=== PATIENT | male | born 1965 | race Caucasian/White ===

== ENCOUNTER 2017-04-11 05:34 | Inpatient (IN) ==
--- NOTE | 2017-04-02 14:36 | EKG Report ---
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
[2017-04-02 14:38] LABS: Basophils # 0.1 10*3/uL (0.0-0.2); Basophils % 0.8 % (0.0-0.8); Eosinophils % 0.6 % (0.00-10.9); Immature Granulocytes % 0.5 %; Immature Granulocytes Absolute 0.03 #; Lymphocytes # 1.2 10*3/uL (1.4-4.0); Lymphocytes % 17.4 % (21.2-54.2); Mean Corpuscular HGB Conc 31.4 GM/DL (32-36); Mean Corpuscular Hemoglobin 25 PG (27-34); Mean Corpuscular Volume 80.8 FL (87-102); Mean Platelet Volume 9.3 FL (9.6-12.0); Monocytes # 0.8 10*3/uL (0.11-0.8); Monocytes % 11.7 % (1.7-12.7); Neutrophils # 4.6 10*3/uL (1.4-7.4); Platelet Count 389 T/CUMM (130-400); Red Blood Count 4.33 MC/CUMM (3.8-5.5); White Blood Count 6.7 T/CUMM (4-12)
[2017-04-02 15:10] LABS: Alanine Aminotransferase 15 U/L (16-61); Alkaline Phosphatase 130 U/L (45-117); Aspartate Amino Transferase 16 U/L (0-37); Bilirubin,Total < 0.39 MG/DL (0.2-1.0); Blood Urea Nitrogen 7 MG/DL (7-18); Calcium 8.6 MG/DL (8.5-10.1); Glucose 80 MG/DL (74-106); Osmolality,Calculated 279.1 MOS/KG (273-304); Potassium 3.7 MMOL/L (3.5-5.1); Sodium 142 MMOL/L (136-145); Total Protein 6.6 G/DL (6.4-8.3)
--- NOTE | 2017-04-02 15:21 | XRay Report ---
XR chest 2V Date: 04/02/2017 2:11 PM History: Respiratory preoperative evaluation Comparison: 11/21/2016 Technique: PA and lateral chest Findings: The heart is normal in size. Right subclavian venous access catheter with tip in SVC. The lungs are stable in appearance with small calcified granulomata/nodes. No acute osseous findings. Impression: No acute cardiopulmonary pathology identified. Right subclavian venous access catheter in satisfactory position PROCEDURE INTERPRETED AT [facility] DEPARTMENT OF RADIOLOGY Final Report Signed by: Dr. Nicki Mi
[2017-04-11] MEDS ORDERED: SODIUM CHLORIDE 0.9% 100 ML IV ONE (06:07)
[2017-04-11] MEDS ORDERED: cefOXitin 1,000 MG in SODIUM CHLORIDE 0.9% 100 ML IV ONE (06:30)
[2017-04-11] MEDS ORDERED: MEPERIDINE 25 MG/1 ML VIAL IV PRN (06:34)
[2017-04-11] MEDS ORDERED: ONDANSETRON 4 MG/2 ML VIAL IV PRN ×2 (06:34→10:42)
[2017-04-11] MEDS ORDERED: HYDROmorphone 2 MG/1 ML VIAL IV PRN (06:34)
[2017-04-11] MEDS ORDERED: BUPIVACAINE MPF 0.25% /EPI 30 ML VIAL ONE (06:50)
[2017-04-11] MEDS ORDERED: LACTATED RINGERS 1,000 ML IV SCH ×2 (07:00→11:00)
[2017-04-11] MEDS ORDERED: GLYCOPYRROLATE 0.4 MG/2 ML VIAL ONE (07:12)
[2017-04-11] MEDS ORDERED: ROCURONIUM 100 MG/10 ML VIAL IV ONE (07:12)
[2017-04-11] MEDS ORDERED: PHENYLEPHRINE 1 MG/10 ML SYRINGE IV ONE (07:12)
[2017-04-11] MEDS ORDERED: PROPOFOL 200 MG/20 ML VIAL IV ONE (07:12)
[2017-04-11] MEDS ORDERED: NEOSTIGMINE 10 MG/10 ML VIAL ONE (07:12)
[2017-04-11] MEDS ORDERED: LIDOCAINE 1% 5 ML VIAL ONE (07:12)
[2017-04-11 09:48] LABS: Apearance,Urine CLEAR (Clear); Bilirubin,Urine Negative (Negative); Blood, Urine Negative (Negative); Glucose,Urine (UA) Negative (Negative); Ketones,Urine Negative (Negative); Mucus,Urine Occasional /LPF (Occasional); Nitrite,Urine Negative (Negative); Protein,Urine Negative; RBC,Urine 2 /HPF (0-4); Urine Color Yellow (Yellow); Urine Specific Gravity 1.014 (1.001-1.035); Urine Urobilinogen < 2.0 EU/DL (0.2-1.0); WBC,Urine 2 /HPF (0-6)
[2017-04-11] MEDS: HYDROmorphone 2 MG/1 ML VIAL IV PRN ×2 (10:59→11:10)
[2017-04-11] MEDS ORDERED: MORPHINE PCA 30 MG/30 ML SYRINGE IV ONE (11:09)
[2017-04-11] MEDS: MORPHINE PCA 30 MG/30 ML SYRINGE IV SCH ×2 (11:15→22:10)
[2017-04-11] MEDS: DEXTROSE 5% LACTATED RINGERS 1,000 ML IV SCH ×2 (11:49→23:07)
--- NOTE | 2017-04-11 12:15 | History and Physical Update ---
History and Physical Update - History and Physical H&P was reviewed, the patient examined and there: are no changes in the patients condition since last H&P was completed.
[2017-04-11] MEDS ORDERED: HYDROmorphone 2 MG/1 ML VIAL ONE (12:22)
--- NOTE | 2017-04-11 12:22 | Operative Note ---
Date of procedure: 04/11/17 Pre-op diagnosis: Locally advanced splenic flexure colon cancer Post-op diagnosis: same Procedure: #1 segmental en bloc resection of large left upper quadrant colon cancer with stapled anastomosis 2. Segmental resection of proximal jejunum with stapled anastomosis 3. Local resection of portion of duodenum with repair of duodenotomy 3. Complete mobilization of splenic flexure 5. Full-thickness biopsy of inferior edge of pancreatic surface 6. Peritoneal biopsy Findings and technique: After informed consent was obtained the patient was brought the operating room and placed in supine position. After successful induction of general anesthesia the colostomy was prepped and closed with a pursestring suture of silk. Following this a small incision was made at the umbilicus after the abdomen was prepped and draped in usual sterile fashion. The peritoneal cavity was entered under direct vision and a Diana cannula inserted. Laparoscopy was carried out and no obvious metastatic disease was noted. There were some questionable areas on the peritoneal surface in the left upper quadrant and laparoscopic biopsy was carried out after a 5 mm port was placed in the left lower quadrant. Frozen section on this was benign. I saw no obvious evidence of unresectability at this point and converted to an open procedure through an upper midline incision. The colostomy was taken down and delivered into the peritoneal cavity to further facilitate exposure in the left upper quadrant. The peritoneal reflection of the descending colon and splenic flexure were incised. Also mobilized the spleen medially by incising the peritoneal reflection between the spleen and the diaphragm. The spleen and the tail of the pancreas were mobilized medially rotating the massive spleen tail of pancreas and tumor mass and colon medially so that they could be fully assessed. I entered the lesser sac and resected stomach free from the mass which did not appear to have any invasion of the tumor mass to stomach. Surprisingly as I entered the lesser sac I could visualize the anterior surface of the pancreas and this appeared to be free from the tumor. I did biopsy a portion of the pancreas where there was some adherence and this was free of tumor. Surprisingly I was able to separate from the spleen is well. There was no adherence of the tumor at all to the spleen or to the splenic vessels. The tumor mass was mobilized medially off of Gerota's fascia with there also appeared to be no invasion at this point as well. I then noted to portions of small intestine that were adherent to the mass 1 at the ligament of Treitz where I incised a portion of bowel wall and then closed this immediately transversely with interrupted silk Lembert sutures. I then divided the mesocolon with LigaSure dissector and maintaining good hemostasis and then divided the proximal jejunum segment about 20 cm in length where it was adherent into different places to the tumor mass. This en bloc resection was then sent to pathology where margins were checked and appeared to be negative. The bowel was then put back together with a stapled anastomosis at the jejunum and this was done with a MAXINE stapling device and a TA stapler to close the openings and the ends of the bowel. Mesenteric defect was closed interrupted silk suture. The descending colon was completely mobilized and I was easily able to do a colonic anastomosis under no tension with a GI stapling device and a TA stapler. Good hemostasis was maintained. The abdomen was irrigated suctioned dry and no bleeding noted. All of the suture lines were coated with Tisseel tissue sealant. Bowel was returned to its normal position. Sponge and instrument counts were correct at the time of closure. The fascial defect of the colostomy was closed with a running 0 PDS suture. The midline fascia was closed with running #1 PDS suture. A 10 mm MARCELLA drain was placed at the base of the pancreas and bed of dissection and brought up through the 5 mm port site in the left lower quadrant. Skin incisions were closed with skin clips. He appeared to tolerate the procedure well and did receive perioperative IV antibiotics as well as DVT prophylaxis. Anesthesia: GETA, local Surgeon / Physician: Mic Harris III. Estimated blood loss: other (200 mL) Specimens: other (Peritoneal biopsy and colon mass) Condition: stable Disposition: PACU Results - Labs CBC & BMP: 04/02/17 14:26 04/02/17 14:26 Discharge Plan - Discharge Medications No Action No Known Home Medications [No Known Home Medications] - Follow Up or Referral - Forms/Instructions
[2017-04-11] MEDS ORDERED: MIDAZOLAM 2 MG/2 ML VIAL ONE (12:23)
[2017-04-11] MEDS ORDERED: SODIUM CHLORIDE 0.9% 1,000 ML IV ONE (12:23)
[2017-04-11] MEDS ORDERED: ACETAMINOPHEN 1,000 MG/100 ML VIAL IV ONE (12:23)
[2017-04-11] MEDS ORDERED: LACTATED RINGERS 1,000 ML IV ONE (12:23)
[2017-04-11] MEDS ORDERED: SUFentanil 50 MCG/ML AMP ONE (12:23)
--- NOTE | 2017-04-11 12:25 | Anesthesia Post-Op ---
Anesthesia Post OP - Post Ansesthetic Evaluation Patient seen in post op: Yes Resp: within normal limits CV: within normal limits Mental: within normal limits Temp: within normal limits Ccqd-[id number]-[id number]: within normal limits Nausea and Vomiting: within normal limits Pain: within normal limits
[2017-04-11 14:41] LABS: Hematocrit 36.4 VOL% (42.0-52.0); Hemoglobin 11.4 GM/DL (14.0-18.0)
[2017-04-11 18:32] LABS: Hematocrit 35.4 VOL% (42.0-52.0); Hemoglobin 10.8 GM/DL (14.0-18.0)
[2017-04-12 05:18] LABS: Basophils # 0.1 10*3/uL (0.0-0.2); Basophils % 0.4 % (0.0-0.8); Eosinophils % 0.2 % (0.00-10.9); Hematocrit 34.7 VOL% (42.0-52.0); Hemoglobin 10.7 GM/DL (14.0-18.0); Immature Granulocytes % 0.5 %; Immature Granulocytes Absolute 0.07 #; Lymphocytes # 1.1 10*3/uL (1.4-4.0); Lymphocytes % 7.7 % (21.2-54.2); Mean Corpuscular HGB Conc 30.8 GM/DL (32-36); Mean Corpuscular Hemoglobin 26 PG (27-34); Mean Corpuscular Volume 84.2 FL (87-102); Mean Platelet Volume 9.9 FL (9.6-12.0); Monocytes # 1.6 10*3/uL (0.11-0.8); Monocytes % 11.3 % (1.7-12.7); Neutrophils % 79.9 % (38.7-73.9); Platelet Count 383 T/CUMM (130-400); Red Blood Count 4.12 MC/CUMM (3.8-5.5); Red Cell Distribution Width 18.6 % (9.3-17.3); White Blood Count 13.8 T/CUMM (4-12)
[2017-04-12 05:20] LABS: Hematocrit 35.3 VOL% (42.0-52.0)
[2017-04-12 05:49] LABS: Albumin 2.6 G/DL (3.4-5.0); Bilirubin,Total 1.1 MG/DL (0.2-1.0); Calcium 8.2 MG/DL (8.5-10.1); Osmolality,Calculated 276.4 MOS/KG (273-304); Potassium 3.8 MMOL/L (3.5-5.1); Total Protein 5.9 G/DL (6.4-8.3)
--- NOTE | 2017-04-12 07:43 | Event Note ---
He feels well. His pain is controlled. He has good urine output. He has only clear output from his nasogastric tube which I think is from the ice chips that he has been eating. His abdomen is benign and he is awake and alert. We will get him up out of bed and get his Shanks catheter and nasogastric tube out.
[2017-04-12] MEDS: DEXTROSE 5% LACTATED RINGERS 1,000 ML IV SCH ×2 (07:54→16:01)
[2017-04-12] MEDS: MORPHINE PCA 30 MG/30 ML SYRINGE IV SCH ×2 (08:17→16:57)
[2017-04-12] MEDS ORDERED: ONDANSETRON 4 MG/2 ML VIAL IV PRN (08:39)
[2017-04-12] MEDS: ENOXAPARIN 40 MG/0.4 ML SYRINGE SUBCUT SCH (20:38)
[2017-04-13] MEDS: DEXTROSE 5% LACTATED RINGERS 1,000 ML IV SCH ×3 (00:10→17:45)
[2017-04-13 03:19] LABS: Basophils # 0.1 10*3/uL (0.0-0.2); Basophils % 0.5 % (0.0-0.8); Eosinophils # 0.1 10*3/uL (0.0-0.87); Eosinophils % 0.9 % (0.00-10.9); Hemoglobin 9.6 GM/DL (14.0-18.0); Immature Granulocytes % 0.6 %; Immature Granulocytes Absolute 0.07 #; Lymphocytes # 1.1 10*3/uL (1.4-4.0); Lymphocytes % 9.7 % (21.2-54.2); Mean Corpuscular Hemoglobin 26 PG (27-34); Mean Corpuscular Volume 84.7 FL (87-102); Mean Platelet Volume 9.8 FL (9.6-12.0); Monocytes # 1.5 10*3/uL (0.11-0.8); Monocytes % 13.7 % (1.7-12.7); Neutrophils # 8.3 10*3/uL (1.4-7.4); Neutrophils % 74.6 % (38.7-73.9); Platelet Count 284 T/CUMM (130-400); Red Blood Count 3.66 MC/CUMM (3.8-5.5); Red Cell Distribution Width 18.2 % (9.3-17.3); White Blood Count 11.2 T/CUMM (4-12)
--- NOTE | 2017-04-13 10:25 | Event Note ---
He looks good. He has no complaints and is tolerating some clear liquids. He has been now walking in the hallway and his pain is controlled. His abdomen is benign and his vital signs are stable. We will try full liquids today.
[2017-04-13] MEDS: MORPHINE PCA 30 MG/30 ML SYRINGE IV SCH (13:45)
[2017-04-13] MEDS: ENOXAPARIN 40 MG/0.4 ML SYRINGE SUBCUT SCH (20:49)
[2017-04-14] MEDS: DEXTROSE 5% LACTATED RINGERS 1,000 ML IV SCH ×3 (01:08→20:41)
--- NOTE | 2017-04-14 08:07 | Event Note ---
He feels well. He denies nausea or vomiting or bloating. He is afebrile with stable vital signs. His abdomen is benign on exam. We will cut back his IV fluids some. I will check follow-up lab work in the morning. We will continue with full liquid diet at this point.
[2017-04-14] MEDS: ENOXAPARIN 40 MG/0.4 ML SYRINGE SUBCUT SCH (20:37)
[2017-04-15] MEDS: MORPHINE PCA 30 MG/30 ML SYRINGE IV SCH ×2 (03:15→16:08)
--- NOTE | 2017-04-15 04:36 | Event Note ---
He feels well. He has had some mild abdominal pain as he feels that he is developing some cramping. He has not had flatus or bowel movement but feels like he needs to. He has not had nausea or vomiting. He is afebrile with stable vital signs and his abdomen is benign on exam and his incisions look okay. We will await return of bowel function before discharging home and advancing his diet.
[2017-04-15 05:59] LABS: Basophils % 0.5 % (0.0-0.8); Eosinophils # 0.2 10*3/uL (0.0-0.87); Eosinophils % 3.4 % (0.00-10.9); Hematocrit 30.7 VOL% (42.0-52.0); Hemoglobin 9.7 GM/DL (14.0-18.0); Immature Granulocytes % 0.3 %; Immature Granulocytes Absolute 0.02 #; Lymphocytes # 0.7 10*3/uL (1.4-4.0); Lymphocytes % 11.9 % (21.2-54.2); Mean Corpuscular HGB Conc 31.6 GM/DL (32-36); Mean Corpuscular Hemoglobin 27 PG (27-34); Mean Corpuscular Volume 84.3 FL (87-102); Mean Platelet Volume 10.3 FL (9.6-12.0); Monocytes # 0.7 10*3/uL (0.11-0.8); Monocytes % 11.5 % (1.7-12.7); Neutrophils # 4.3 10*3/uL (1.4-7.4); Neutrophils % 72.4 % (38.7-73.9); Platelet Count 277 T/CUMM (130-400); Red Blood Count 3.64 MC/CUMM (3.8-5.5); Red Cell Distribution Width 17.4 % (9.3-17.3); White Blood Count 5.9 T/CUMM (4-12)
[2017-04-15 06:24] LABS: Calcium 8.3 MG/DL (8.5-10.1); Magnesium 1.8 MG/DL (1.8-2.4); Osmolality,Calculated 277.3 MOS/KG (273-304); Potassium 3.8 MMOL/L (3.5-5.1)
[2017-04-15] MEDS: DEXTROSE 5% LACTATED RINGERS 1,000 ML IV SCH ×2 (07:39→17:51)
[2017-04-15] MEDS: ENOXAPARIN 40 MG/0.4 ML SYRINGE SUBCUT SCH (21:13)
[2017-04-16] MEDS: DEXTROSE 5% LACTATED RINGERS 1,000 ML IV SCH (04:09)
[2017-04-16 05:57] VITALS: BP 129/72
[2017-04-16] MEDS ORDERED: HEPARIN LOCK FLUSH 500 UNIT/5 ML SYRINGE IV PRN (08:50)
[2017-04-16] MEDS ORDERED: HEPARIN LOCK FLUSH 500 UNIT/5 ML SYRINGE IV SCH (09:00)
--- NOTE | 2017-04-16 09:20 | Event Note ---
He feels well. He is tolerating p.o. diet and is having bowel movements. There is nothing but serosanguineous drainage in his MARCELLA drain and we will remove this. His pathology is pending. He is afebrile. I think we can discharge him home. His wounds look good. I will see him back in the clinic in about a week.
--- NOTE | 2017-04-16 10:58 | Discharge Summary ---
Hospital Course - Hospital Course Hospital Course: The patient is a 51-year-old male with locally advanced chronic flexure colon cancer who underwent resection as detailed below. 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 He was ultimately able to be weaned from the IV narcotics to orals and discharged home in good condition. Pathology still pending. Patient is tolerating oral intake, passing his bowels, tolerating activity, and voiding without difficulty. Incisions look good. He was discharged home in good condition. 1 week follow-up Dr. Harris. Diagnosis - Discharge Diagnosis (1) Colon cancer Status: Acute Specialty Discharge - Follow Up or Referrals Follow up with: Mic Harris III., MD [Physician] - 05/24/17 10:15 am Discharge Plan - Discharge Data Disposition: Disch To Home/Self Care Condition at Discharge: Stable Discharge Diet: advance to your usual diet Activity: no lifting (>5-10lb. ) Hygiene: may shower (Do not soak or submerge wounds. Pat dry.) Driving: not until seen by doctor Contact your physician if you experience:: fever over 101, Difficulty voiding, Redness or swelling, Nausea/Vomiting, Shortness of breath, Bleeding, pain uncontrolled by pain medications Wound / Dressing Care Instructions: Keep incisions clean and dry. - Discharge Medications New HYDROcodone/ACETAMIN 7.5-325 [[place] 7.5-325] 1 - 2 tablet PO Q4H PRN #40 tablet PRN Reason: Pain Moderate To Severe (4-10) No Action No Known Home Medications [No Known Home Medications] - Follow Up or Referral Follow Up: Mic Harris III., MD [Physician] - 05/24/17 10:15 am - Forms/Instructions Instructions: Staple Care (DC) Exam - Constitutional Vitals: Period Temp Pulse Resp BP Sys/Bledsoe Pulse Ox Last 24 Hr 97.1 F-98.8 F 72-88 18-20 127-140/68-84 93-99 General appearance: no acute distress - Respiratory Respiratory exam: Present: clear to auscultation bilaterally - Cardiovascular Cardiovascular exam: Present: regular rate and rhythm - GI/Abdominal GI/Abdominal exam: Present: normal bowel sounds, soft (Appropriate postop tenderness about incisions which is minimal.), other (Surgical incisions are clean and dry with kelley intact.). Absent: distended, firm, guarding, rebound - Extremities Exam Extremities exam: Absent: calf tenderness, edema - Neurological Exam Neurological exam: Present: alert, oriented X3 - Psychiatric Psychiatric exam: Present: normal affect, normal mood - Skin Skin exam: Present: normal color, warm Discharge Results Procedures and tests throughout hospitalization: 1. segmental en bloc resection of large left upper quadrant: Mass with a stapled anastomosis 2. Segmental resection of proximal jejunum with stable anastomosis 3. Local resection of portion of duodenum with repair of duodenotomy 4. Complete mobilization of splenic flexure 5. Full-thickness biopsy of inferior edge of pancreatic service 6. Peritoneal biopsy Pathology pending DS: Provider Date of admission: 04/11/17 10:27 Primary care physician: Sergio Faria MD Attending physician on admission: Mic Harris III., Consults: None Discharging clinician: Whitney Ruby PA-C
--- NOTE | 2017-04-16 12:17 | Pathology Report from [facility] ---
[facility] [place] [id number] PATIENT NAME : Cristhian Soria ORDERING DR : FRANCI STUBBS III, MD CLINICAL HX: Advanced colon cancer POST-OP DX: Same SPECIMEN INFO: #1 Peritoneal biopsy #2 Pancreas surface #3 Colon cancer with attached small bowel, check margins GROSS DESCRIPTION: #1 Received fresh for frozen section labeled CRISTHIAN SORIA consists of a 0.4 x 0.2 cm aggregate of hunt tissue submitted in cassette #1 for frozen section.#2 Received fresh for frozen section labeled CRISTHIAN SORIA consists of fragment of yellow red tissue measuring 1.0 x 0.6 cm, submitted in cassette FS2 for frozen section.#3 Received fresh labeled with the patients name CRISTHIAN SORIA and consists of a segment of colon measuring 18.0 cm in length and up to 4.0 cm in diameter. Opening the specimen reveals a circumferential tumor mass measuring 10.0 x 6.5 cm which extends to within 6.5 cm of the nearest margin and within 3.5 cm of the opposite margin. Grossly the tumor extends through the bowel wall into the adjacent mesentery coming to within 1.0 cm of the mesenteric margin. The tumor also invades into an adjacent attached segment of small bowel which measures 9.0 x 3.5 cm. Lymph nodes will be submitted following fixation. Sections submitted: 3A colon proximal margin , 3B distal margin, 3C and 3D tumor and mesenteric margin, 3E and 3F tumor, 3G tumor and adjacent small bowel, 3H and 3I small bowel margin. Cassettes added on Saturday04/12/2017. Cassettes 3J and 3K lymph nodes. DIAGNOSIS FOR CRISTHIAN SORIA: see page #2Page #2MICROSCOPIC DIAGNOSIS:#1 PERITONEAL BIOPSY: Benign, no evidence of tumor.#2 PANCREAS SURFACE: Benign liver, no evidence of malignancy.#3 COLON, PARTIAL COLECTOMY (Intact, 18 x 4 cm ): TYPE: Invasive adenocarcinoma TUMOR SITE: Colon, NOS TUMOR SIZE: 10 x 6.5 cm. MACROSCOPIC TUMOR PERFORATION: Present HISTOLOGIC GRADE: Poorly differentiated. MICROSCOPIC TUMOR EXTENSION: Tumor penetrates serosa and invades adjacent small bowel. MARGINS, PROXIMAL: Uninvolved by carcinoma, distance = 6.5 cm DISTAL: Uninvolved by carcinoma, distance = 3.5 cm MESENTERIC: Uninvolved by carcinoma, distance = 1.0 cm LYMPH VASCULAR INVASION: Present. PERINEURAL INVASION: Present. TUMOR DEPOSITS: Not identified. LYMPH NODES: NUMBER EXAMINED: 19. NUMBER INVOLVED: 1. ADDITIONAL FINDINGS: NoneAJCC PATHOLOGIC STAGE IIIC ([id number] ). COLLECTED DATE: 04/11/2017 [facility] REPORT DATE: 04/16/2017 ELECTRONICALLY SIGNED BY: Felipe Seals III, M.D. 04/16/2017 - 7:31:12 MTDD
--- NOTE | 2017-04-19 11:00 | Physician Query Form ---
CLICK EDIT DOCUMENT TO SELECT QUERY ANSWER --> OK --> SIGN Cassi Rocha RN, CCDS Certified Clinical Foreign Language Teacher W) [phone] (f) [phone] [email or web address] PROVIDERS: Make your selection(s) from the choices in EACH section by typing an "x" and enter comments in the comment section. Please use your independent medical judgment in providing your response. This request does not imply that any particular answer is desired or expected. CLINICAL INDICATORS: (Providers should not edit this section) Pathology Findings: The pathology report is showing "AJCC PATHOLOGIC STAGE IIIC ([id number])----Lymph nodes ---Number examined 19-----Number involved 1. Abnormal Pathology findings are not reported unless an authorized provider indicates their clinical significance Please select the best choice: ( x) I agree with the Pathology findings ( ) I disagree with the Pathology findings ( ) No clinical significance ( ) Other/clarification of findings, please specify: ( ) Clinically unable to determine COMMENTS: PLEASE ALSO DOCUMENT RESPONSE IN PROGRESS NOTES AND/OR DISCHARGE SUMMARY Use of terms such as suspected, likely, or probable (associated with a specific diagnosis that is being evaluated, monitored, or treated as if it exists) are acceptable and can be restated in the discharge summary if not ruled out. MTDD
--- NOTE | 2017-04-22 07:28 | Physician Query Form ---
CLICK EDIT DOCUMENT TO SELECT QUERY ANSWER --> OK --> SIGN Cassi Rocha RN, CCDS Certified Clinical Set Up Mechanic [employer] W) [phone] (f) [phone] [email or web address] PROVIDERS: Make your selection(s) from the choices in EACH section by typing an "x" and enter comments in the comment section. Please use your independent medical judgment in providing your response. This request does not imply that any particular answer is desired or expected. CLINICAL INDICATORS: (Providers should not edit this section) Pathology Findings: The pathology report is showing "AJCC PATHOLOGIC STAGE IIIC ([id number])----Lymph nodes ---Number examined 19-----Number involved 1. Abnormal Pathology findings are not reported unless an authorized provider indicates their clinical significance Please select the best choice: ( ) I agree with the Pathology findings ( ) I disagree with the Pathology findings ( ) No clinical significance ( ) Other/clarification of findings, please specify: ( ) Clinically unable to determine COMMENTS: PLEASE ALSO DOCUMENT RESPONSE IN PROGRESS NOTES AND/OR DISCHARGE SUMMARY Use of terms such as suspected, likely, or probable (associated with a specific diagnosis that is being evaluated, monitored, or treated as if it exists) are acceptable and can be restated in the discharge summary if not ruled out. MTDD
== END 2017-04-16 12:00 | disposition home or self-care (01) | DRG 327 ==
LOC: N.OR 05:34 → N.SDSINP 05:35 → N.2E 10:27
PROVIDERS: ADMIT Surgery; ATTEND Surgery

== ENCOUNTER 2020-12-29 02:38 | Observation (INO) ==
[2020-12-29] MEDS ORDERED: SODIUM CHLORIDE 0.9% 1,000 ML IV STA (02:57)
[2020-12-29] MEDS ORDERED: PANTOPRAZOLE 40 MG VIAL IV STA (02:57)
[2020-12-29] MEDS ORDERED: ONDANSETRON 4 MG/2 ML VIAL IV STA (02:57)
[2020-12-29] MEDS ORDERED: HYDROmorphone 2 MG/1 ML VIAL IV STA (02:57)
[2020-12-29 03:21] LABS: Basophils # 0.1 10*3/uL (0.0-0.2); Basophils % 0.5 % (0.0-0.8); Eosinophils % 0.2 % (0.00-10.9); Hematocrit 44.6 VOL% (42.0-52.0); Immature Granulocytes % 1.1 %; Immature Granulocytes Absolute 0.18 #; Lymphocytes # 0.7 10*3/uL (1.4-4.0); Lymphocytes % 4.3 % (21.2-54.2); Mean Corpuscular HGB Conc 31.4 GM/DL (32-36); Mean Corpuscular Volume 89.9 FL (87-102); Mean Platelet Volume 9.1 FL (9.6-12.0); Neutrophils % 84.9 % (38.7-73.9); Platelet Count 312 T/CUMM (130-400); Red Blood Count 4.96 MC/CUMM (3.8-5.5)
[2020-12-29 03:48] LABS: Alanine Aminotransferase 53 U/L (16-61); Albumin 2.4 G/DL (3.4-5.0); Alkaline Phosphatase 895 U/L (45-117); Amylase 21 U/L (25-115); Aspartate Amino Transferase 127 U/L (0-37); Blood Urea Nitrogen 10 MG/DL (7-18); Calcium 9.1 MG/DL (8.5-10.1); Carbon Dioxide 27 MMOL/L (21-32); Estimated Glom Filtration Rate 106 ML/MIN; Glucose 128 MG/DL (74-106); Osmolality,Calculated 260.8 MOS/KG (273-304); Potassium 3.7 MMOL/L (3.5-5.1); Sodium 130 MMOL/L (136-145); Total Protein 8.3 G/DL (6.4-8.3)
[2020-12-29 03:52] LABS: Lactic Acid 3.8 MMOL/L (0.4-2.0)
[2020-12-29] MEDS ORDERED: PIPERACILLIN/TAZOBACTAM 3,375 MG in SODIUM CHLORIDE 0.9% 100 ML IV STA (03:56)
[2020-12-29 04:32] LABS: Eosinophils 1 % (0-10); Lymphocytes 3 % (20-55); Platelet Estimate Normal; Segmented Neutrophils 90 % (50-85); Total Cells Counted 100
[2020-12-29 05:00] LABS: Bilirubin,Urine Negative (Negative); Blood, Urine Negative (Negative); Glucose,Urine (UA) Negative (Negative); Ketones,Urine Negative (Negative); Mucus,Urine Many /LPF (Occasional); Nitrite,Urine Negative (Negative); Protein,Urine 30 MG/DL; RBC,Urine 2 /HPF (0-4); Urine Appearance CLEAR (Clear); Urine Color Amber (Yellow); Urine Specific Gravity 1.021 (1.001-1.035); WBC,Urine 1 /HPF (0-6)
[2020-12-29] MEDS ORDERED: LACTULOSE 20 GM/30 ML UDCUP PO PRN ×2 (05:41→05:57)
[2020-12-29] MEDS ORDERED: MORPHINE 4 MG/1 ML VIAL IV PRN (05:57)
[2020-12-29] MEDS ORDERED: GLUCAGON 1 MG VIAL IM PRN (05:57)
[2020-12-29] MEDS ORDERED: ONDANSETRON 4 MG/2 ML VIAL IV PRN (05:57)
[2020-12-29] MEDS ORDERED: DEXTROSE 50% 25 GM/50 ML VIAL IV PRN (05:57)
[2020-12-29] MEDS: SODIUM CHLORIDE 0.9% 1,000 ML IV SCH ×2 (06:28→19:26)
[2020-12-29] MEDS: ASCORBIC ACID 500 MG TABLET PO SCH (08:38)
[2020-12-29] MEDS: CHOLECALCIFEROL 400 UNIT TABLET PO SCH (08:38)
[2020-12-29] MEDS: MULTIVITAMIN (CENTRUM) TABLET PO SCH (08:38)
[2020-12-29] MEDS ORDERED: RIVAROXABAN 15 MG TABLET PO SCH (09:00)
[2020-12-29] MEDS: INSULIN LISPRO 100 UNIT/ML SUBCUT SCH ×4 (11:46→21:37)
[2020-12-29] MEDS: PIPERACILLIN/TAZOBACTAM 3,375 MG in SODIUM CHLORIDE 0.9% 100 ML IV SCH ×2 (12:25→19:26)
[2020-12-29] MEDS: REGORAFENIB 40 MG PO SCH ×2 (19:56→19:59)
[2020-12-30] MEDS: PIPERACILLIN/TAZOBACTAM 3,375 MG in SODIUM CHLORIDE 0.9% 100 ML IV SCH ×3 (03:02→19:38)
[2020-12-30 05:24] LABS: Basophils # 0.1 10*3/uL (0.0-0.2); Basophils % 0.5 % (0.0-0.8); Eosinophils # 0.1 10*3/uL (0.0-0.87); Hematocrit 38.1 VOL% (42.0-52.0); Immature Granulocytes % 0.7 %; Immature Granulocytes Absolute 0.08 #; Lymphocytes # 0.7 10*3/uL (1.4-4.0); Lymphocytes % 6.3 % (21.2-54.2); Mean Corpuscular HGB Conc 31.5 GM/DL (32-36); Mean Corpuscular Volume 89.6 FL (87-102); Mean Platelet Volume 9.5 FL (9.6-12.0); Neutrophils % 79.5 % (38.7-73.9); Platelet Count 251 T/CUMM (130-400); Red Blood Count 4.25 MC/CUMM (3.8-5.5); Red Cell Distribution Width 17.5 % (9.3-17.3); White Blood Count 11.2 T/CUMM (4-12)
[2020-12-30 05:48] LABS: INR 1.4; PT Patient Result 15.2 SECS (9.8-11.9); Partial Thromboplastin Time 37.7 SECS (23.9-33.8)
[2020-12-30 05:59] LABS: Albumin 1.8 G/DL (3.4-5.0); Bilirubin,Total 1.5 MG/DL (0.2-1.0); Osmolality,Calculated 258.7 MOS/KG (273-304); Potassium 3.9 MMOL/L (3.5-5.1); Total Protein 6.6 G/DL (6.4-8.3)
[2020-12-30] MEDS: INSULIN LISPRO 100 UNIT/ML SUBCUT SCH ×4 (08:09→20:14)
[2020-12-30] MEDS: ASCORBIC ACID 500 MG TABLET PO SCH (08:42)
[2020-12-30] MEDS: CHOLECALCIFEROL 400 UNIT TABLET PO SCH (08:42)
[2020-12-30] MEDS: MULTIVITAMIN (CENTRUM) TABLET PO SCH (08:42)
[2020-12-30] MEDS: REGORAFENIB 40 MG PO SCH ×2 (16:13→20:14)
[2020-12-31] MEDS: PIPERACILLIN/TAZOBACTAM 3,375 MG in SODIUM CHLORIDE 0.9% 100 ML IV SCH ×2 (03:02→13:08)
[2020-12-31 05:48] LABS: Basophils # 0.1 10*3/uL (0.0-0.2); Basophils % 0.6 % (0.0-0.8); Eosinophils # 0.1 10*3/uL (0.0-0.87); Eosinophils % 0.8 % (0.00-10.9); Hematocrit 39.9 VOL% (42.0-52.0); Hemoglobin 12.3 GM/DL (14.0-18.0); Immature Granulocytes % 0.8 %; Immature Granulocytes Absolute 0.15 #; Lymphocytes # 1.1 10*3/uL (1.4-4.0); Lymphocytes % 5.9 % (21.2-54.2); Mean Corpuscular HGB Conc 30.8 GM/DL (32-36); Mean Corpuscular Volume 91.3 FL (87-102); Mean Platelet Volume 9.4 FL (9.6-12.0); Monocytes % 10.9 % (1.7-12.7); Platelet Count 339 T/CUMM (130-400); Red Blood Count 4.37 MC/CUMM (3.8-5.5); Red Cell Distribution Width 17.5 % (9.3-17.3); White Blood Count 17.7 T/CUMM (4-12)
[2020-12-31 06:12] LABS: Blood Urea Nitrogen 7 MG/DL (7-18); Calcium 8.3 MG/DL (8.5-10.1); Carbon Dioxide 27 MMOL/L (21-32); Estimated Glom Filtration Rate 113 ML/MIN; Glucose 90 MG/DL (74-106); Osmolality,Calculated 265.2 MOS/KG (273-304); Potassium 3.9 MMOL/L (3.5-5.1); Sodium 134 MMOL/L (136-145)
[2020-12-31] MEDS: INSULIN LISPRO 100 UNIT/ML SUBCUT SCH ×2 (08:16→11:28)
[2020-12-31] MEDS: CHOLECALCIFEROL 400 UNIT TABLET PO SCH (08:55)
[2020-12-31] MEDS: ASCORBIC ACID 500 MG TABLET PO SCH (08:55)
[2020-12-31] MEDS: MULTIVITAMIN (CENTRUM) TABLET PO SCH (08:55)
[2020-12-31] MEDS: SODIUM CHLORIDE 0.9% 1,000 ML IV SCH (08:56)
[2020-12-31] MEDS: REGORAFENIB 40 MG PO SCH (08:56)
[2020-12-31 11:40] VITALS: BP 129/73
[2020-12-31] MEDS ORDERED: HEPARIN LOCK FLUSH 500 UNIT/5 ML SYRINGE IV ONE (11:55)
== END 2020-12-31 12:56 | disposition home or self-care (01) ==
LOC: N.ED 02:38 → N.EDINP 02:38 → N.2E 06:48 → N.4E 07:28
PROVIDERS: ADMIT Internal Medicine; ATTEND Internal Medicine

== ENCOUNTER 2021-01-14 08:50 | Inpatient (IN) ==
[2021-01-14 09:33] LABS: Troponin I < 0.015 NG/ML (0.00-0.045)
[2021-01-14 10:01] LABS: Basophils # 0.1 10*3/uL (0.0-0.2); Basophils % 0.4 % (0.0-0.8); Eosinophils % 0.2 % (0.00-10.9); Hematocrit 35.4 VOL% (42.0-52.0); Immature Granulocytes % 0.6 %; Immature Granulocytes Absolute 0.07 #; Lymphocytes # 0.4 10*3/uL (1.4-4.0); Lymphocytes % 3.4 % (21.2-54.2); Mean Corpuscular HGB Conc 31.1 GM/DL (32-36); Mean Corpuscular Volume 90.5 FL (87-102); Mean Platelet Volume 10.3 FL (9.6-12.0); Monocytes % 0.9 % (1.7-12.7); Neutrophils % 94.5 % (38.7-73.9); Platelet Count 225 T/CUMM (130-400); Red Blood Count 3.91 MC/CUMM (3.8-5.5); Red Cell Distribution Width 18.2 % (9.3-17.3)
[2021-01-14] MEDS ORDERED: ONDANSETRON 4 MG/2 ML VIAL IV ONE (10:07)
[2021-01-14] MEDS ORDERED: HYDROmorphone 2 MG/1 ML VIAL IV STA (10:07)
[2021-01-14 10:23] LABS: INR 1.3
[2021-01-14 10:24] LABS: Albumin 2.1 G/DL (3.4-5.0); Bilirubin,Total 4.2 MG/DL (0.2-1.0); Calcium 8.6 MG/DL (8.5-10.1); Osmolality,Calculated 271.1 MOS/KG (273-304); Potassium 4.5 MMOL/L (3.5-5.1); Total Protein 7.2 G/DL (6.4-8.3)
[2021-01-14 10:26] LABS: Anisocytosis 1+; Band Neutrophils 2 % (0-10); Lymphocytes 6 % (20-55); Macrocytosis 1+; Platelet Estimate Normal; Segmented Neutrophils 92 % (50-85); Total Cells Counted 100
[2021-01-14] MEDS ORDERED: ONDANSETRON 4 MG/2 ML VIAL IV PRN ×2 (13:42→15:33)
[2021-01-14] MEDS ORDERED: GLUCAGON 1 MG VIAL IM PRN (13:42)
[2021-01-14] MEDS ORDERED: MORPHINE 4 MG/1 ML VIAL IV PRN (13:42)
[2021-01-14] MEDS ORDERED: DEXTROSE 50% 25 GM/50 ML VIAL IV PRN (13:42)
[2021-01-14] MEDS: FUROSEMIDE 40 MG/4 ML VIAL IV SCH (14:21)
[2021-01-14] MEDS ORDERED: diphenhydrAMINE CAP 25 MG CAPSULE PO PRN (15:33)
[2021-01-14] MEDS ORDERED: BENZTROPINE 2 MG/2 ML AMP IV PRN (15:33)
[2021-01-14] MEDS ORDERED: traMADol 50 MG TABLET PO PRN (15:33)
[2021-01-14] MEDS ORDERED: chlorproMAZINE INJ 25 MG in SODIUM CHLORIDE 0.9% 100 ML IV PRN (15:33)
[2021-01-14] MEDS ORDERED: MAGNESIUM HYDROXIDE SUSP 30 ML UDCUP PO PRN (15:33)
[2021-01-14] MEDS ORDERED: chlorproMAZINE 25 MG TABLET PO PRN (15:33)
[2021-01-14] MEDS ORDERED: PROMETHAZINE INJ 25 MG in SODIUM CHLORIDE 0.9% 50 ML IV PRN (15:33)
[2021-01-14] MEDS ORDERED: guaiFENesin 200 MG/10 ML UDCUP PO PRN (15:33)
[2021-01-14] MEDS ORDERED: ACETAMINOPHEN 325 MG TABLET PO PRN (15:33)
[2021-01-14] MEDS ORDERED: TEMAZEPAM 7.5 MG CAPSULE PO PRN (15:33)
[2021-01-14] MEDS ORDERED: ALUMINUM/MAGNES/SIMETH MAX STR 30 ML UDCUP PO PRN (15:33)
[2021-01-14] MEDS ORDERED: chlorproMAZINE INJ 50 MG in SODIUM CHLORIDE 0.9% 100 ML IV PRN (15:33)
[2021-01-14] MEDS ORDERED: MYLANTA/LIDO VISC 2:1 300 ML BOTTLE SWISH/SPIT PRN (15:33)
[2021-01-14] MEDS ORDERED: LACTULOSE 20 GM/30 ML UDCUP PO PRN (15:33)
[2021-01-14] MEDS ORDERED: ALPRAZolam 0.25 MG TABLET PO PRN (15:33)
[2021-01-14] MEDS ORDERED: LOPERAMIDE 2 MG CAPSULE PO PRN ×2 (15:33)
[2021-01-14] MEDS ORDERED: MYLANTA/LIDO VISC 2:1 300 ML BOTTLE SWISH/SWAL PRN (15:33)
[2021-01-14] MEDS: ALBUTEROL/IPRATROPIUM 3 ML NEB RESP TX SCH (19:22)
[2021-01-14] MEDS: ENOXAPARIN 40 MG/0.4 ML SYRINGE SUBCUT SCH (20:13)
[2021-01-14] MEDS: DOCUSATE SODIUM 100 MG CAPSULE PO SCH (20:13)
[2021-01-14] MEDS: HYDROmorphone 2 MG/1 ML VIAL IV PRN (22:14)
[2021-01-15] MEDS: ALBUTEROL/IPRATROPIUM 3 ML NEB RESP TX SCH ×4 (00:43→19:34)
[2021-01-15 06:07] LABS: Basophils % 0.3 % (0.0-0.8); Eosinophils % 0.2 % (0.00-10.9); Hematocrit 32.3 VOL% (42.0-52.0); Hemoglobin 10.1 GM/DL (14.0-18.0); Immature Granulocytes % 0.6 %; Immature Granulocytes Absolute 0.05 #; Lymphocytes # 0.5 10*3/uL (1.4-4.0); Lymphocytes % 5.7 % (21.2-54.2); Mean Corpuscular HGB Conc 31.3 GM/DL (32-36); Mean Corpuscular Volume 90.5 FL (87-102); Monocytes % 1.3 % (1.7-12.7); Neutrophils % 91.9 % (38.7-73.9); Red Blood Count 3.57 MC/CUMM (3.8-5.5); Red Cell Distribution Width 18.1 % (9.3-17.3); White Blood Count 8.7 T/CUMM (4-12)
[2021-01-15 06:09] LABS: Platelet Count 140 T/CUMM (130-400)
[2021-01-15 06:24] LABS: Calcium 8.2 MG/DL (8.5-10.1); Osmolality,Calculated 264.5 MOS/KG (273-304)
[2021-01-15 08:10] LABS: Band Neutrophils 1 % (0-10); Lymphocytes 5 % (20-55); Segmented Neutrophils 94 % (50-85); Total Cells Counted 100
[2021-01-15 08:11] LABS: Hypochromasia 2+; Platelet Estimate Adequate
[2021-01-15] MEDS: DOCUSATE SODIUM 100 MG CAPSULE PO SCH ×3 (08:20→20:18)
[2021-01-15] MEDS: HYDROmorphone 2 MG/1 ML VIAL IV PRN ×4 (08:21→23:35)
[2021-01-15] MEDS: FUROSEMIDE 40 MG/4 ML VIAL IV SCH (08:22)
[2021-01-15] MEDS: CYCLOBENZAPRINE 10 MG TABLET PO PRN ×2 (09:57→20:14)
[2021-01-15] MEDS ORDERED: fentaNYL 12 MCG/HR PATCH TRANSDERM SCH (11:26)
[2021-01-15] MEDS: ENOXAPARIN 40 MG/0.4 ML SYRINGE SUBCUT SCH (20:17)
[2021-01-16] MEDS: ALBUTEROL/IPRATROPIUM 3 ML NEB RESP TX SCH ×4 (00:20→20:41)
[2021-01-16 06:15] LABS: Basophils % 0.6 % (0.0-0.8); Eosinophils # 0.1 10*3/uL (0.0-0.87); Hematocrit 30.4 VOL% (42.0-52.0); Hemoglobin 9.9 GM/DL (14.0-18.0); Immature Granulocytes % 1.4 %; Lymphocytes # 0.4 10*3/uL (1.4-4.0); Lymphocytes % 5.7 % (21.2-54.2); Mean Corpuscular HGB Conc 32.6 GM/DL (32-36); Mean Corpuscular Volume 88.6 FL (87-102); Mean Platelet Volume 10.3 FL (9.6-12.0); Monocytes % 1.5 % (1.7-12.7); Neutrophils % 89.8 % (38.7-73.9); Platelet Count 114 T/CUMM (130-400); Red Blood Count 3.43 MC/CUMM (3.8-5.5); White Blood Count 7.2 T/CUMM (4-12)
[2021-01-16] MEDS: CYCLOBENZAPRINE 10 MG TABLET PO PRN (06:21)
[2021-01-16 06:33] LABS: Hypochromasia 1+; Microcytosis 1+; Ovalocytes Slight; Platelet Estimate Decreased
[2021-01-16 06:48] LABS: Calcium 8.3 MG/DL (8.5-10.1); Osmolality,Calculated 263.5 MOS/KG (273-304); Potassium 4.4 MMOL/L (3.5-5.1)
[2021-01-16 06:53] LABS: Albumin 1.9 G/DL (3.4-5.0); Bilirubin,Total 4.7 MG/DL (0.2-1.0); Calcium 8.3 MG/DL (8.5-10.1); Osmolality,Calculated 265.4 MOS/KG (273-304); Potassium 4.3 MMOL/L (3.5-5.1); Total Protein 6.7 G/DL (6.4-8.3)
[2021-01-16] MEDS ORDERED: chlorproMAZINE 25 MG TABLET PO ONE (08:28)
[2021-01-16] MEDS: HYDROmorphone 2 MG/1 ML VIAL IV PRN (10:32)
[2021-01-16] MEDS: FLUCONAZOLE 200 MG TABLET PO SCH (16:38)
[2021-01-16] MEDS: FUROSEMIDE 40 MG/4 ML VIAL IV SCH (16:39)
[2021-01-16] MEDS: DOCUSATE SODIUM 100 MG CAPSULE PO SCH ×2 (16:52→23:08)
[2021-01-16] MEDS: ENOXAPARIN 40 MG/0.4 ML SYRINGE SUBCUT SCH (23:08)
[2021-01-17] MEDS: ALBUTEROL/IPRATROPIUM 3 ML NEB RESP TX SCH ×2 (01:40→07:30)
[2021-01-17] MEDS ORDERED: HEPARIN LOCK FLUSH 500 UNIT/5 ML SYRINGE IV ONE (08:40)
[2021-01-17] MEDS: DOCUSATE SODIUM 100 MG CAPSULE PO SCH (09:23)
[2021-01-17] MEDS: FLUCONAZOLE 200 MG TABLET PO SCH (09:23)
[2021-01-17] MEDS: FUROSEMIDE 40 MG/4 ML VIAL IV SCH (09:23)
[2021-01-17 11:33] VITALS: BP 104/69
== END 2021-01-17 11:41 | disposition hospice, home (50) | DRG 375 ==
LOC: N.ED 08:50 → SUATTDRO 14:21 → N.5E 14:21 → N.4E 14:57
PROVIDERS: ADMIT Internal Medicine; ATTEND Internal Medicine